=== PATIENT | male | born 1980 | race Caucasian/White ===

== ENCOUNTER 2024-04-10 02:42 | Emergency (ER) | payer SELFPAY ==
[~2024-04-10] VITALS: Ht 170.2 cm; Wt 91.0 kg
[2024-04-10 02:49] VITALS: TEMP 98.1; O2SAT 99
[2024-04-10 05:00] VITALS: BP 94/46; PULSE 56; RESP 15
[2024-04-10] MEDS: KETOROLAC 30MG/ML VIAL IM ONE (05:00)
[2024-04-10] MEDS: HYDROCODONE/ACETAMINOPHEN 5/325MG TABLET PO ONE (05:00)
[2024-04-10] MEDS ORDERED: CYCL5TAB MT (05:25)
[2024-04-10] MEDS ORDERED: NAPR-679 MT (05:25)
[2024-04-10] MEDS ORDERED: TOPUD MT (05:25)
== END 2024-04-10 06:30 | disposition home or self-care (01) ==
LOC: ER 02:42
DX: S39.012A Strain of muscle, fascia and tendon of lower back, initial encounter (principal); X58.XXXA Exposure to other specified factors, initial encounter; Y93.89 Activity, other specified; Y92.89 Other specified places as the place of occurrence of the external cause; Y99.8 Other external cause status
CPT/HCPCS: 99283; 73502; 96372; J1885